=== PATIENT | male | born 1955 | race Caucasian/White ===

== ENCOUNTER 2017-05-28 06:16 | Day surgery (SDC) | payer BC ==
[2017-05-23 14:32] VITALS: BMI 33.0
[2017-05-28] MEDS ORDERED: MIDAZOLAM HCL 2 MG/2 ML SINGLE DOSE VIAL ONE ×4 (07:29→08:47)
[2017-05-28] MEDS ORDERED: DOCUSATE SODIUM 100 MG CAPSULE (FP) PO PRN (07:53)
[2017-05-28] MEDS ORDERED: HYDROmorphone HCL 2 MG TABLET PO PRN (07:53)
[2017-05-28] MEDS ORDERED: BUPIVACAINE HCL/PF 0.5% (5MG/ML) 10 ML VIAL ONE (07:55)
[2017-05-28] MEDS ORDERED: SODIUM CHLORIDE 0.9% P/F 10 ML VIAL IJ ONE (07:59)
[2017-05-28] MEDS ORDERED: ceFAZolin SODIUM 1 GM VIAL ONE (07:59)
[2017-05-28] MEDS ORDERED: DEXTROSE 5%-0.45% SALINE 1,000 ML IV SCH (08:00)
[2017-05-28] MEDS ORDERED: ceFAZolin SODIUM 1 GM VIAL IVPB ONE (08:08)
[2017-05-28] MEDS ORDERED: PROMETHAZINE HCL 25 MG/1 ML VIAL IVPUSH PRN (09:12)
[2017-05-28] MEDS ORDERED: ONDANSETRON 4 MG/2 ML VIAL IVPUSH PRN (09:12)
[2017-05-28] MEDS ORDERED: LACTATED RINGERS SOLUTION 1,000 ML IV SCH (09:15)
[2017-05-28] MEDS ORDERED: ACETAMINOPHEN INJECTION 100 ML IVPB ONE (09:50)
[2017-05-28 09:58] LABS: BASOPHIL 0.5 % (0-2.0); EOSINOPHIL 0.9 % (0-4.5); MCHC 34.2 g/dl (32.0-35.9); MEAN CELL VOLUME 81.7 fl (80-96); MEAN PLT VOLUME 7.7 fl (7.5-11.1); PLATELET COUNT 230 K/MM3 (134-434); RDW 13.6 % (11.9-15.9); WHITE BLOOD COUNT 8.9 K/mm3 (4.0-10.0)
[2017-05-28] MEDS: ACETAMINOPHEN 1000 MG/100 ML VIAL (NON FORMULARY) IVPB ONE ×2 (10:00→15:27)
[2017-05-28 10:33] LABS: ANION GAP 6 (8-16); CALCIUM 8.2 mg/dL (8.5-10.1); CO2 30 mmol/L (21-32); CREATININE 1.1 mg/dL (0.7-1.3); GLUCOSE,RANDOM 113 mg/dL (74-106)
--- NOTE | 2017-05-28 11:54 | OP ---
DATE OF OPERATION: 05/28/2017 PREOPERATIVE DIAGNOSIS: Urinary retention and benign prostatic hypertrophy. POSTOPERATIVE DIAGNOSIS: Urinary retention and benign prostatic hypertrophy. PROCEDURE: Cystoscopy, bipolar transurethral resection of the prostate. SURGEON: Bladimir Singer MD ANESTHESIA: Son Landeros MD, spinal. ESTIMATED BLOOD LOSS: 50 mL. FINDINGS: Enlarged prostate. Bladder with trabeculations but no stones or tumors. DRAINS: A 24-Trinidadian 3-way Degroot catheter. SPECIMEN: None. PREOPERATIVE INDICATIONS: The patient is a 61-year-old male with a history of enlarged prostate. He most likely went into urinary retention. The patient has failed trial of void. His prostate measured over 200 g on MRI, so he is offered and decides on having a TURP. DESCRIPTION OF PROCEDURE: The patient was brought to the OR. Placed on the table in the supine position. He sat up then given a spinal anesthetic and then placed in the modified lithotomy position. The patient was given IV sedation and IV antibiotics. His groin was prepped and draped sterilely. A time-out was performed. Cystoscopy was performed. The distal urethra appeared to be normal. The sphincter was visualized. The prostate was markedly enlarged. The scope was passed through the enlarged prostate into the bladder. The bladder had trabeculations. No tumors or stones were seen. Both UOs were visualized. Using the bipolar generator with the TURP with a PlasmaButton. The prostate tissue was vaporized from the bladder neck to the area just proximal to the verumontanum. Hemostasis was maintained throughout. Care was taken not to injure the bladder or the urinary sphincter. After the resection, there appeared to be an open channel. While prostate tissue did remain, there appeared to be an open channel from the bladder out through the prostate. Both the UOs were seen and not injured. The sphincter itself was also seen and not injured. The scope was removed. Strong stream of urine was seen coming out of the bladder. A 24-Trinidadian 3-way Degorot catheter was placed for postoperative irrigation. The patient was awakened. BLADIMIR SINGER M.D. [id number]
[2017-05-28] MEDS: CEFAZOLIN 1 GM PUSH 1 GM/10 ML DISP.SYRIN IVPUSH SCH (17:32)
[2017-05-29] MEDS: CEFAZOLIN 1 GM PUSH 1 GM/10 ML DISP.SYRIN IVPUSH SCH ×2 (02:14→09:56)
[2017-05-29 07:32] LABS: BASOPHIL 0.4 % (0-2.0); EOSINOPHIL 0.6 % (0-4.5); MCHC 34.5 g/dl (32.0-35.9); MEAN CELL VOLUME 81.3 fl (80-96); MEAN PLT VOLUME 7.8 fl (7.5-11.1); NEUTROPHILS 82.8 % (42.8-82.8); PLATELET COUNT 242 K/MM3 (134-434); RDW 13.3 % (11.9-15.9); WHITE BLOOD COUNT 16.6 K/mm3 (4.0-10.0)
[2017-05-29 07:53] LABS: ANION GAP 9 (8-16); CALCIUM 8.5 mg/dL (8.5-10.1); CO2 26 mmol/L (21-32); GLUCOSE,RANDOM 124 mg/dL (74-106)
[2017-05-29] MEDS ORDERED: amLODIPine BESYLATE 10 MG TABLET (FP) PO SCH (10:00)
[2017-05-29] MEDS ORDERED: FINASTERIDE 5 MG TABLET (FP) PO SCH (10:00)
[2017-05-29] MEDS ORDERED: LOSARTAN POTASSIUM PO SCH (10:00)
--- NOTE | 2017-05-29 10:02 | PN ---
Progress Note (short form) - Note Progress Note: PT complains of bladder spasm, on and off this am. It seems to be associated with the passage of clots. Vital Signs Period Temp Pulse Resp BP Sys/Benton Pulse Ox Last 24 Hr 97.5 F-98.4 F 56-88 10-20 108-147/70-90 96-100 ABD: soft, non-distended, non-tender Degroot: urine with occasional blood clots, clear with CBI running but becomes mohsen colored when CBI stopped CBC, BMP 05/29/17 06:00 05/29/17 06:00 A/P: 61 yo male s/p cystoscopu with bipolar trasuretheral resection of prostate D/w Dr. Singer, will continue CBI slowly for now and he will evaluate the patient later today Placed on oral medications, including his daily dose of Kdur, K 3.2 today
[2017-05-29] MEDS: POTASSIUM CHLORIDE TABS 20 MEQ TABLET.ER (FP) PO SCH ×3 (10:18→11:58)
[2017-05-29] MEDS ORDERED: LOSARTAN POTASSIUM 50 MG TABLET (FP) PO SCH (11:00)
--- NOTE | 2017-05-29 13:45 | PN ---
Progress Note (short form) - Note Progress Note: S/P TURP stable urine minimally tinged with CBI discharge home
[2017-05-29 13:47] VITALS: BP 147/83; PULSE 95; TEMP 98.4
[2017-05-29] MEDS ORDERED: PHENAZOPYRIDINE HCL 100 MG TABLET (FP) PO SCH (14:00)
== END 2017-05-29 14:53 | disposition home or self-care (01) ==
LOC: JASUSAT 06:16 → JASU-SURG 06:16 → J6S 12:18 → JASUSAT 05-29 14:53
PROVIDERS: ATTEND Urology
PROC: 0VT08ZZ Resection of Prostate, Via Natural or Artificial Opening Endoscopic (ICD-10-PCS; principal; 2017-05-28 08:00)
DX: N40.1 Benign prostatic hyperplasia with lower urinary tract symptoms (principal); R33.9 Retention of urine, unspecified
CPT/HCPCS: 36415; 80048; 85025; 86850; 86900; 86901; 94760

== ENCOUNTER 2018-04-22 10:06 | Emergency (ER) | payer BC ==
--- NOTE | 2018-04-22 10:12 | PDOC ---
History of Present Illness - General Chief Complaint: Injury Stated Complaint: rt wrist injury Time Seen by Provider: 04/22/18 10:12 History Source: Patient Exam Limitations: No Limitations - History of Present Illness Initial Comments: 04/22/18 10:25 62y M presnts with R wrist injury. Pt states he was coming off a ladder yesterday, missed the last step and fell down, ladning on his R wrist. The wrist is still hurting so came for evaluation. denies any head injury, loc, neck pain, abck pain, LUE, or leg/hip pain. denies numbness/tingling/weakness. took alleve at home with jeb [employer], but declines any meds now. not on a/c Constitutional - no reported Fever, Chills, HEENT: no reported vision changes, Cardiac: no reported chest pain, Abd/GI: no reported abd pain, nausea, vomiting, Musculskelatal - +R wrist pain no reported back pain, joint swelling skin - no reported bruising, erythema, rash neurological: no reported headache, numbness, focal weakness, tingling, ataxia, hematologic: no reported easy bruising, easy bleeding GENERAL: The patient is awake, alert, and fully oriented, Nontoxic - in no acute distress. HEAD: Normocephalic, atraumatic. EXTREMITIES: mild edema and limited ROM of wrist, no focl bony tenderness, sensation intact, no brusing noted will obtain xray to r/o fx pt declines pain meds Past History - Past Medical History Allergies/Adverse Reactions: Allergies Allergy/AdvReac Type Severity Reaction Status Date / Time No Known Allergies Allergy Verified 04/22/18 10:07 Home Medications: Ambulatory Orders Aluminum Chloride [Drysol] 1 dose PO ASDIR PRN 05/23/17 Amlodipine Besylate [Norvasc -] 10 mg PO DAILY 05/23/17 Cholecalciferol (Vitamin D3) [Vitamin D3] 5,000 unit PO DAILY 05/23/17 Losartan Potassium [Cozaar] 1 tab PO DAILY 05/23/17 Potassium Chloride [K-Dur -] 20 meq PO DAILY 05/23/17 Anemia: No Asthma: No Cancer: No Cardiac Disorders: No CVA: No COPD: No CHF: No Dementia: No Diabetes: No GI Disorders: No Disorders: Yes (BPH) HTN: Yes Hypercholesterolemia: No Liver Disease: No Seizures: No Thyroid Disease: No - Surgical History Abdominal Surgery: Yes (UMBILICAL HERNIA REPAIR) Appendectomy: No Cardiac Surgery: No Cholecystectomy: No Lung Surgery: No Neurologic Surgery: No Orthopedic Surgery: No - Immunization History Td Vaccination: Yes Immunization Up to Date: No - Suicide/Smoking/Psychosocial Hx Smoking Status: No Smoking History: Never smoked Have you smoked in the past 12 months: No Number of Cigarettes Smoked Daily: 0 Hx Alcohol Use: Yes (RARELY) Drug/Substance Use Hx: No Substance Use Type: Alcohol Hx Substance Use Treatment: No Procedures - Consent Consent obtained: Verbal - Splinting Splint Location: Right: Wrist Pre-Proc Neuro Vasc Exam: normal Hand-Made Type: orthoglass Splint Type: Yes: Volar Post-Proc Neuro Vasc Exam: normal Rafael Bandage: 3" Sling: Yes Complications: No Post splint xray: No ED Treatment Course - RADIOLOGY Radiology Studies Ordered: Category Date Time Status WRIST W/HAND-RIGHT* [RAD] Stat Radiology 04/22/18 10:12 Ordered Medical Decision Making - Medical Decision Making 04/22/18 11:35 xray noted for distal radius fracture placed in volar splint will have pt fu with orthopedics return precautions were discussed I discussed the physical exam findings, ancillary test results and final diagnoses with the patient. I answered all of the patient's questions. The patient was satisfied with the care received and felt comfortable with the discharge plan and treatment plan. The patient will call their primary care physician within 24 hours to arrange follow-up and will return to the Emergency Department with any new, persistent or worsening symptoms. *DC/Admit/Observation/Transfer Diagnosis at time of Disposition: Distal radius fracture, right Qualifiers: Encounter type: initial encounter Fracture type: closed Fracture morphology: Colles' Qualified Code(s): S52.531A - Colles' fracture of right radius, initial encounter for closed fracture - Discharge Dispostion Disposition: HOME Condition at time of disposition: Improved Decision to Admit order: No - Referrals Referrals: Barry Kent MD [Staff Physician] - - Patient Instructions Printed Discharge Instructions: How to Use a Sling Additional Instructions: Return to the emergency department immediately with ANY new, persistent or worsening symptoms. You MUST call and follow up with your orthopedics in 3-4 days for further evaluation of your symptoms. Results were discussed with you. Please make sure your doctor reviews the results of your emergency evaluation. If you had any xrays during your visit, it was read preliminarily by myself, a Radiologist will review it and if there are any additional findings we will call you. Print Language: HUNGARIAN - Post Discharge Activity
[2018-04-22 10:26] VITALS: BP 131/82; PULSE 84; TEMP 98.9; BMI 33.0
== END 2018-04-22 11:56 | disposition home or self-care (01) ==
LOC: FER 10:06
PROC: 2W3CX1Z Immobilization of Right Lower Arm using Splint (ICD-10-PCS; principal; 2018-04-22)
DX: S52.531A Colles' fracture of right radius, initial encounter for closed fracture (principal); W11.XXXA Fall on and from ladder, initial encounter; Y93.89 Activity, other specified; Y92.9 Unspecified place or not applicable; I10 Essential (primary) hypertension; N40.0 Benign prostatic hyperplasia without lower urinary tract symptoms
CPT/HCPCS: 73110-TC-RT-FY; 73130-TC-RT-FY; 99282-25

== ENCOUNTER 2018-05-01 11:52 | Day surgery (SDC) | payer BC ==
[2018-04-29 15:05] VITALS: BMI 33.0
[2018-05-01] MEDS ORDERED: ROPIVACAINE HCL 0.5% 30ML VIAL ONE (12:13)
[2018-05-01] MEDS ORDERED: MIDAZOLAM HCL 2 MG/2 ML SINGLE DOSE VIAL ONE (12:13)
[2018-05-01] MEDS ORDERED: LIDOCAINE 1% P/F 10 MG/ML VIAL ONE (12:13)
[2018-05-01] MEDS ORDERED: PROPOFOL 20 ML ONE ×3 (13:05→13:40)
[2018-05-01] MEDS ORDERED: ceFAZolin SODIUM 1 GM VIAL ONE (13:06)
[2018-05-01] MEDS ORDERED: ONDANSETRON 4 MG/2 ML VIAL ONE (13:06)
[2018-05-01] MEDS ORDERED: oxyCODONE HCL 5 MG TABLET PO PRN (14:25)
[2018-05-01] MEDS ORDERED: ONDANSETRON 4 MG/2 ML VIAL IVPUSH PRN (14:25)
[2018-05-01] MEDS ORDERED: LACTATED RINGERS SOLUTION 1,000 ML IV SCH (14:30)
[2018-05-01 15:31] VITALS: BP 128/79; PULSE 76; TEMP 98
--- NOTE | 2018-05-01 17:22 | OP ---
DATE OF OPERATION: 05/01/2018 PREOPERATIVE DIAGNOSIS: Right displaced comminuted intraarticular displaced distal radius fracture. POSTOPERATIVE DIAGNOSIS: Right displaced comminuted intraarticular displaced distal radius fracture. OPERATIVE PROCEDURE: Open reduction, internal fixation of right comminuted intraarticular displaced radius fracture with internal fixation, 3 or more fragments. SURGEON: Renuka Ballesteros M.D. DIRECTOR CALL CENTER SALES: Milagros Patiño ANESTHESIA: Regional and sedation. COMPLICATIONS: None. ESTIMATED BLOOD LOSS: Minimal. INDICATION FOR PROCEDURE: The patient is a 62-year-old male with the above findings, indicated for operative treatment. Risks, benefits, and alternatives were discussed with the patient at length. Proper informed consent was obtained. DESCRIPTION OF PROCEDURE: After proper identification of the patient and correct operative site, patient was brought to the operating room and placed supine on the operating room table, all bony prominences well padded. Regional anesthesia was given as sedation by the anesthesiologist and adequate for the procedure. Right upper extremity was prepped and draped in the usual sterile fashion. Esmarch bandage to exsanguinate the right upper extremity. Tourniquet inflated to 250 mmHg. Longitudinal incision over the volar aspect of the distal radius. Incision was taken sharply through skin with blunt dissection of the subcutaneous tissues, flexor carpi radialis tendon along with the contents of the carpal canal was bluntly and gently retracted in ulnarward direction for the remainder of the procedure. Pronator quadratus was divided and elevated off the distal radius where a comminuted displaced fracture was noted. Brachioradialis tenotomy was necessary to mobilize radial styloid fragment. Once this was accomplished, fracture was able to be reduced and secured with an Acumed, Acu-Loc distal radius plate with distal locking screws and proximal nonlocking screws in bicortical fashion. Scaphoid lunate interval and stressed and found to be stable. Radiographs taken throughout the procedure showed probable placement and sizing of all hardware as well as satisfactory reduction of fracture. Wound was irrigated and repaired with 4-0 Vicryl including pronator quadratus as well as 4-0 Monocryl for the skin. Sterile dressing and splint were placed. Patient was reversed from anesthesia and brought to recovery room in stable condition. Milo Sutherland, the assistant production manager, was integral throughout the procedure. Procedure could not have been performed without a skilled operative assistant production manager. RENUKA BALLESTEROS M.D. [id number]
== END 2018-05-01 15:32 | disposition home or self-care (01) ==
LOC: FASU 11:52
PROVIDERS: ATTEND Orthopaedic Surgery Hand Surgery
PROC: 0LN50ZZ Release Right Lower Arm and Wrist Tendon, Open Approach (ICD-10-PCS; 2018-05-01)
PROC: 0PSH04Z Reposition Right Radius with Internal Fixation Device, Open Approach (ICD-10-PCS; principal; 2018-05-01 13:01)
DX: S52.531A Colles' fracture of right radius, initial encounter for closed fracture (principal); X58.XXXA Exposure to other specified factors, initial encounter; Y93.89 Activity, other specified; Y92.89 Other specified places as the place of occurrence of the external cause
CPT/HCPCS: 25290; 25609; C1713; 73110-TC-RT-FY

== ENCOUNTER 2018-12-18 04:18 | Emergency (ER) | payer BC | END 2018-12-18 04:47 | disposition home or self-care (01) | LOC: FER 04:18 ==

== ENCOUNTER 2021-11-10 08:13 | Day surgery (SDC) | payer BC ==
[2021-11-07 12:31] VITALS: BMI 32.3
[2021-11-10 09:08] VITALS: TEMP 97.3
[2021-11-10] MEDS ORDERED: PROPOFOL 20 ML ONE ×3 (09:14)
[2021-11-10 09:20] VITALS: BP 110/62; PULSE 80
== END 2021-11-10 09:48 | disposition home or self-care (01) ==
LOC: FASU-ENDO 08:13
PROVIDERS: ATTEND Internal Medicine Gastroenterology
PROC: 0DBM8ZX Excision of Descending Colon, Via Natural or Artificial Opening Endoscopic, Diagnostic (ICD-10-PCS; principal; 2021-11-10 08:44)
DX: Z12.11 Encounter for screening for malignant neoplasm of colon (principal); D12.4 Benign neoplasm of descending colon; K57.30 Diverticulosis of large intestine without perforation or abscess without bleeding
CPT/HCPCS: 88305-TC